=== PATIENT | female | born 1950 | race Caucasian/White ===

== ENCOUNTER → 2023-07-28 15:05 | Outpatient (CLI) | payer MEDICARE, BC, SELFPAY ==
--- NOTE | 2023-07-29 01:34 | DI.NM.S_ITS ---
DATE OF SERVICE: 07/28/2023 PROCEDURE: Exercise stress test. INDICATION: Chest pressure, hypertension, impaired fasting glucose. CARDIAC STRESS: The patient underwent exercise stress test under the supervision of an attending staff using standard Joshua protocol. The patient walked on Joshua protocol for 6 minutes 22 seconds, achieved maximum heart rate of 158, which was 106% of target heart rate. JOSE DANIEL - 11%. Achieved 6.4 METs of workload. Resting blood pressure 140/92 and peak blood pressure 212/88. Baseline rhythm was sinus. During stress, no convincing ischemic changes seen. No significant arrhythmias. No chest pain or anginal symptoms. The patient felt fatigue and dyspnea. CONCLUSION: Exercise stress test is negative for inducible ischemia. Hypertensive blood pressure response. JOSE DANIEL -11%. No chest pain. No significant arrhythmias. Overall, low-risk exercise stress test. Conchis Gipson - JIM/mustapha/kt doc#: [id number]/job#: [id number] dd: 07/28/2023 17:16:00 dt: 07/29/2023 01:22:00 DICTATING /COPIES TO: Sharon Sagastume MD COPIES MNE: MARLYS;
== END ==
PROVIDERS: PCP Family Medicine; Referring Provider Family Medicine; Visit Provider Family Medicine
DX: R07.89 Other chest pain (principal); I10 Essential (primary) hypertension
CPT/HCPCS: 93017